=== PATIENT | female | born 1960 | race Caucasian/White ===

== ENCOUNTER 2024-07-14 09:24 | Emergency (ER) | payer MEDICARE, OTHER ==
[2024-07-14] MEDS: Aspirin 81 MG Tab.Chew PO ONE (09:46)
[2024-07-14 09:49] LABS: BASOPHILS PERCENT AUTO 0.6 % (0.0-1.0); EOSINOPHILS PERCENT AUTO 2.4 % (1.0-3.0); HEMATOCRIT 40.1 % (37.0-47.0); HEMOGLOBIN 13.4 g/dL (12.0-16.0); LYMPHOCYTES PERCENT AUTO 31.2 % (20.5-50.1); MEAN CORPUSCULAR HEMOGLOBIN 31.1 pg (27.0-34.0); MEAN CORPUSCULAR HGB CONC 33.4 g/dL (33.0-35.0); MONOCYTES PERCENT AUTO 10.7 % (2-8); NEUTROPHILS PERCENT AUTO 55.1 % (42.2-75.2); PLATELET COUNT,PLT 220 10^3/uL (150-450); RED BLOOD CELL COUNT 4.31 10^6/uL (4.2-5.4); WHITE BLOOD CELL COUNT,WBC 5.1 10^3/uL (5.0-10.0)
[2024-07-14 10:09] LABS: INR 0.9 (0.9-1.2); PROTHROMBIN TIME 9.5 SEC (9.0-12.0); PTT,PARTIAL THROMBOPLSTIN TIME 24.9 SEC (22.0-34.0)
[2024-07-14 10:16] LABS: ANION GAP 14.2 mEq/L (7-13); BLOOD UREA NITROGEN,BUN 14 mg/dL (8-26); BUN/CREATININE RATIO 17.5 (No establ ref range); CALCIUM 1.22; CARBON DIOXIDE,CO2 27 mmol/L (24-29); CHLORIDE,CL 104 mmol/L (98-109); CREATININE 0.8 mg/dL (0.6-1.3); ESTIMATED GFR 82 mL/min (>=60); GLUCOSE RANDOM 98 mg/dL (70-105); POTASSIUM,K 4.2 mmol/L (3.5-4.9); SODIUM,NA 141 mmol/L (138-146)
[2024-07-14] MEDS: Iopamidol 755 Mg/ML 100 ML Bottle IVPUSH ONE (12:11)
[2024-07-14] MEDS: Take Home: predniSONE 20 MG, 4 Tab Pack PO ONE (12:40)
[2024-07-14] MEDS: Albuterol 6.7 GM Inhaler INH ONE (12:40)
[2024-07-14 14:25] LABS: A/G RATIO 1.1; ALANINE AMINOTRANSFERASE,ALT 30 U/L (14-59); ALBUMIN 3.9 g/dL (3.4-5.0); ALKALINE PHOSPHATASE 77 U/L (46-116); ASPARTATE AMNIOTRANSFERASE,AST 30 U/L (15-37); BILIRUBIN TOTAL 0.5 mg/dL (0.2-1.0); PROTEIN TOTAL,TP 7.3 g/dL (6.4-8.2)
== END 2024-07-14 12:58 | disposition home or self-care (01) ==
LOC: DL.ED 09:24
DX: J45.909 Unspecified asthma, uncomplicated (principal)
CPT/HCPCS: 36415; 71045; 71275; 80053; 83735; 84484; 85025; 85379; 85610; 85730; 93005; 99283; 99285; A9270; Q9967